=== PATIENT | female | born 1960 | race Hispanic/Latino ===

== ENCOUNTER 2018-01-16 21:52 | Emergency (ER) | payer OTHER, SELFPAY ==
--- OUTSIDE RECORDS SUMMARY | 2018-01-16 21:53 | XMS REPORT | Clinical Summary ---
:1960 Author Organization [facility] Address [address] [place] [address] Phone Care Team Providers Name Role Phone Unavailable Primary Care Provider Unavailable Allergies No Known Allergies Current Medications Prescription Sig. Disp. Refills Start Date End Date Status BABY ASPIRIN ORAL Take by mouth Active daily. metFORMIN (GLUCOPHAGE) 850 Take 850 mg by Active MG tablet mouth 3 (three) times daily with meals. pravastatin (PRAVACHOL) 40 Take 40 mg by Active MG tablet mouth nightly. lisinopril Take 40 mg by Active (PRINIVIL,ZESTRIL) 40 MG mouth daily. tablet Active Problems Problem Noted Date Ventricular tachyarrhythmia (HCC) 12/18/2016 Social History Tobacco Use Types Packs/Day Years Used Date Never Smoker Alcohol Use Drinks/Week oz/Week Comments No Sex Assigned at Date Recorded Not on file Last Filed Vital Signs Not on file Plan of Treatment Not on file Results Not on fileafter 01/15/2017
--- OUTSIDE RECORDS SUMMARY | 2018-01-16 21:54 | XMS REPORT | Continuity of Care Document ---
:1960 Author Organization Interface Problems Problem Status Onset Classification Date Comments Source Date Reported CHEST PAIN Active 10/31/19 [place] [id number] SENT Active 10/31/[address] Diabetes Resolved Problem 11/05/2016 [facility] Hypertension Resolved Problem 11/05/2016 [facility] Hypothyroid Resolved Problem 11/05/2016 [facility] CHEST PAIN, Active [facility] UNSPECIFIED [place] Medications Medication Details Route Status Patient Ordering Order Source Instructions Provider Date Sodium Chloride
1,000 mL, Inactive 0.154 MEQ/ML Rate: 75 ml/hr, 2016 [place] Injectable Infuse over: 13.3 Solution hr, Route: IV, Dosing Weight 72.273 kg, Total Volume: 1,000, Start date: 11/02/16 9:13:00 CDT, Duration: 24 hr, Stop date: 11/03/16 9:12:00 CDT insulin detemir
15 unit, Inactive 0.15 mL, Route: 2016 [place] SUB-Q, Drug form: SOLN, Daily, Start date: 11/02/16 9:00:00 CDT, Duration: 30 day, Stop date: 12/01/16 9:00:00 CDT
Notes: Same as Levemir Do not hold insulin without contacting prescriber WASTE: F/P - Black; E - Municipal Trash Bin "single patient use only" insulin detemir
15 unit, Active 100 units/mL SUB-Q, Daily, 0 2016 [place] subcutaneous Refill(s) solution Insulin, Aspart,
8 unit, Active Human SUB-Q, TID-Before 2017 [place] Meals, PRN Blood Glucose Results, 0 Refill(s) Nitroglycerin
0.4 mg=1 Active 0.4 MG tab, SL, Q5Min, 2017 [place] Sublingual PRN Chest Pain, Tablet not to exceed 3 doses/15 min--if pain persists, seek medical attention, # 100 tab, 3 Refill(s) atorvastatin 40
40 mg=1 tab, Active mg oral tablet PO, Bedtime, # 30 2017 [place] tab, 3 Refill(s) aspirin 81 mg
81 mg=1 tab, Active tablet, enteric PO, Daily, # 100 2017 [place] coated tab, 3 Refill(s) lisinopril 10 mg
10 mg=1 tab, Active oral tablet PO, Daily, # 30 2017 [place] tab, 3 Refill(s) insulin detemir
15 unit, Inactive Route: SUB-Q, 2016 [place] Drug form: SOLN, Daily, Start date: 11/01/16 9:49:00 CDT, Duration: 30 day, Stop date: 12/01/16 9:00:00 CDT Lisinopril
10 mg, 1 No Longer tab, Route: PO, Active 2016 [place] Drug form: TAB, Daily, Dosing Weight 71.045, kg, Start date: 11/01/16 9:00:00 CDT, Duration: 30 day, Stop date: 11/30/16 9:00:00 CDT
Notes: (Same as: Prinivil, Zestril) Lovenox
70 mg, 0.7 No Longer mL, Route: SUB-Q, Active 2016 [place] Drug form: INJ, [id number], Dosing Weight 72.273, kg, Start date: 10/31/16 16:00:00 CDT, Stop date: 11/30/16 4:00:00 CDT
Notes: Nurse to ensure documentation of patient education per anticoagulation policy. (Same as: Lovenox) insulin detemir
15 unit, No Longer Route: SUB-Q, Active 2016 [place] Drug form: SOLN, Daily, Start date: 10/31/16 15:00:00 CDT, Duration: 30 day, Stop date: 11/30/16 9:00:00 CDT
Notes: Same as Levemir Do not hold insulin without contacting prescriber WASTE: F/P - Black; E - [employer] Trash [employer] "single patient use only" Insulin Glargine
12 unit, Inactive 100 UNT/ML Route: SUB-Q, 2017 [place] Injectable Daily, Dosing Solution Weight 72.273, [Lantus] kg, Start date: 10/31/16 14:09:00 CDT, Duration: 30 day, Stop date: 11/30/16 9:00:00 CDT Lovenox
60 mg, Inactive Route: SUB-Q, 2016 [place] Drug form: INJ, [id number], Dosing Weight 72.273, kg, Start date: 10/31/16 14:00:00 CDT, Stop date: 11/01/16 2:00:00 CDT pneumococcal
0.5 mL, Inactive capsular Route: IM, Drug 2016 [place] polysaccharide Form: INJ, Daily, type 1 vaccine / Start date: pneumococcal 10/31/16 9:00:00 capsular CDT, Duration: 1 polysaccharide doses or times, type 10A vaccine Stop date: / pneumococcal 10/31/16 9:00:00 capsular CDT
Notes: polysaccharide (Same as: type 11A vaccine Pneumovax 23) / pneumococcal Refrigerate capsular polysaccharide type 12F vaccine / pneumococcal capsular polysacchar aspirin 81 mg
81 mg, 1 No Longer tablet, enteric tab, Route: PO, Active 2016 [place] coated Drug form: ECTAB, Daily, Dosing Weight 71.045, kg, Start date: 10/31/16 9:00:00 CDT, Duration: 30 day, Stop date: 11/29/16 9:00:00 CDT
Notes: Do not crush or chew. (Same As: Ecotrin) pravastatin 40
40 mg=1 tab, No Longer mg oral tablet PO, Bedtime, 0 Active 2016 [place] Refill(s) Lisinopril
20 mg, PO, No Longer Daily, 0 Active 2016 [place] Refill(s) Metformin
850, PO, Active TID, 0 Refill(s) 2017 [place] atorvastatin
80 mg, 2 No Longer tab, Route: PO, Active 2016 [place] Drug form: TAB, Bedtime, Dosing Weight 71.045, kg, Start date: 10/30/16 21:00:00 CDT, Duration: 30 day, Stop date: 11/28/16 21:00:00 CDT
Notes: (Same as: Lipitor) Saline Flush
10 ml, No Longer 0.9% Route: IVP, Drug Active 2016 [place] Form: INJ, Dosing Weight 71.045, kg, Q12H, Start date: 10/30/16 21:00:00 CDT, Duration: 30 day, Stop date: 11/29/16 9:00:00 CDT
Notes: (Same as: BD Posiflush) metoprolol
50 mg, 1 No Longer extended release tab, Route: PO, Active 2016 [place] Drug form: ERTAB, Daily, Priority: NOW, Start date: 10/30/16 19:02:00 CDT, Duration: 30 day, Stop date: 11/29/16 9:00:00 CDT
Notes: (Same as: Toprol XL) May split tab, but do not crush. Aspirin 81 MG
81 mg, Inactive Chewable Tablet Route: PO, Drug 2016 [place] form: CHEWTAB, Daily, Dosing Weight 71.045, kg, Priority: NOW, Start date: 10/30/16 19:01:00 CDT, Duration: 30 day, Stop date: 11/29/16 9:00:00 CDT Lisinopril
20 mg, 1 No Longer tab, Route: PO, Active 2016 [place] Drug form: TAB, Daily, Dosing Weight 71.045, kg, Priority: STAT, Start date: 10/30/16 19:01:00 CDT, Duration: 30 day, Stop date: 11/29/16 9:00:00 CDT
Notes: (Same as: Prinivil, Zestril) Lovenox
71.045 mg, Inactive 0.71 mL, Route: 2017 [place] SUB-Q, Drug form: INJ, ONCE, Dosing Weight 71.045, kg, Priority: STAT, Start date: 10/30/16 19:00:00 CDT, Stop date: 10/30/16 19:00:00 CDT
Notes: Nurse to ensure documentation of patient education per anticoagulation policy. (Same as: Lovenox) Insulin, Aspart,
8 unit, 0.08 No Longer Human mL, Route: SUB-Q, Active 2016 [place] Drug form: SOLN, TID-Before Meals, Dosing Weight 71.045, kg, PRN Blood Glucose Results, Start date: 10/30/16 19:00:00 CDT, Duration: 30 day, Stop date: 11/29/16 18:59:00 CDT
Notes: Roll in palms of hands gently; Do not shake vigorously. (Same as: NovoLOG) "single patient use only" WASTE: F/P - Black; E - Municipal Trash Bin Stable for 28 days at room temperature. Expires in days from Dat e Dextrose 50%
12.5 gm, 25 No Longer Syringe mL, Route: IVP, Active 2016 [place] Drug Form: INJ, Dosing Weight 71.045, kg, PRN, PRN Blood Glucose Results, Start date: 10/30/16 19:00:00 CDT, Duration: 30 day, Stop date: 11/29/16 18:59:00 CDT Glucagon
1 mg, Route: No Longer IM, Drug form: Active 2016 [place] PDR/INJ, PRN, Dosing Weight 71.045, kg, PRN Blood Glucose Results, Start date: 10/30/16 19:00:00 CDT, Duration: 30 day, Stop date: 11/29/16 18:59:00 CDT Saline Flush
10 ml, No Longer 0.9% Route: IVP, Drug Active 2016 [place] Form: INJ, Dosing Weight 71.045, kg, PRN, PRN Line Flush, Start date: 10/30/16 18:57:00 CDT, Duration: 30 day, Stop date: 11/29/16 18:56:00 CDT
Notes: (Same as: BD Posiflush) Nitroglycerin
0.4 mg, 1 No Longer tab, Route: SL, Active 2016 [place] Drug form: TAB, Q5Min, Dosing Weight 71.045, kg, PRN Chest Pain, Start date: 10/30/16 18:57:00 CDT, Duration: 3 doses or times, Stop date: Limited # of times
Note s: (Same as:Nitroquick, Nitrostat) "Do Not Crush" Sublingual tablet Aspirin
324 mg, Inactive Route: CHEW, Drug 2016 [place] form: CHEWTAB, ONCE, Dosing Weight 71.045, kg, Priority: STAT, Start date: 10/30/16 18:46:00 CDT, Stop date: 10/30/16 18:46:00 CDT Allergies, Adverse Reactions, Alerts Substance Category Reaction Severity Reaction Status Date Comments Source type Reported NKDA Assertion Drug Active allergy [place] Immunizations Immunization Date Site Status Last Comments Source Given Updated pneumococcal Right completed [facility] 23-valent vaccine 7 deltoid Results Order Name Results Value Reference Date Interpretation Comments Source Range ELECTROLYTES AGAP 14.1 10.0 - 11/02 meq/L 20.0 /2017 [place] ELECTROLYTES eGFR 100 11/02 Result Comment: The eGFR is calculated using the CKD-EPI formula. In most young, healthy individuals the eGFR will be > 90 mL/min/1.73m2. The eGFR declines with age. An eGFR of 60-89 may be normal in mL/min/ /2017 some populations, particularly the elderly, for whom the CKD-EPI formula has not been extensively validated. Use of the eGFR is not recommended in the following populations: [place] 1.73m2 Individuals with unstable creatinine concentrations, including patients and those with serious co-morbid conditions. Patients with extremes in muscle mass or diet. The data above are obtained from the National Kidney Disease Education Program (NKDEP) which additionally recommends that when the eGFR is used in patients with extremes of body mass index for purposes of drug dosing, the eGFR should be multiplied by the estimated BMI. ELECTROLYTES CO2 28 24 - 32 11/02 [facility] meq/L /2016 [place] ELECTROLYTES Calcium Lvl 9.5 8.5 - 10.5 11/02 MH mg/dL /2016 [place] ELECTROLYTES Chloride Lvl 99 95 - 109 11/02 MH meq/L /2016 [place] ELECTROLYTES Potassium Lvl 4.1 3.5 - 5.1 11/02 MH meq/L [place] ELECTROLYTES Creatinine Lvl 0.65 0.50 - 11/02 MH mg/dL 1.40 [place] ELECTROLYTES Sodium Lvl 137 135 - 145 11/02 MH meq/L /2016 [place] ELECTROLYTES Glucose Lvl 221 70 - 99 11/02 MH mg/dL [place] ELECTROLYTES BUN 17 7 - 22 11/02 MH mg/dL /2016 [place] HEMATOLOGY Platelet 230 133 - 450 11/02 MH K/CMM [place] HEMATOLOGY RDW 13.1 % 11.5 - 11/02 MH 14.5 [place] HEMATOLOGY MPV 10.4 fL 7.4 - 10.4 11/02 [place] HEMATOLOGY RBC X 10x6 3.92 4.20 - 11/02 MH M/CMM 5.40 [place] HEMATOLOGY MCH 30.7 pg 27.0 - 11/02 MH 31.0 [place] HEMATOLOGY Hct 35.9 % 36.0 - 11/02 MH 48.0 [place] HEMATOLOGY MCHC 33.5 32.0 - 11/02 MH g/dL 36.0 [place] HEMATOLOGY MCV 91.7 fL 80.0 - 11/02 MH 98.0 [place] HEMATOLOGY Hgb 12.0 12.0 - 11/02 MH g/dL 16.0 [place] HEMATOLOGY WBC X 10x3 8.1 3.7 - 10.4 11/02 MH K/CMM [place] HEMATOLOGY Atypical 0.0 % <=0.0 % 11/02 Lymphs /2016 [place] HEMATOLOGY RBC Morph Normal 11/02 [place] (11/02/16 4:19 AM) HEMATOLOGY Lymphocytes 42.0 % 20.0 - 11/02 MH 40.0 [place] HEMATOLOGY Plt Morph Normal 11/02 [place] (11/02/16 4:19 AM) HEMATOLOGY Monocytes 9.0 % 2.0 - 12.0 11/02 MH [place] HEMATOLOGY Eosinophils # 0.3 0.0 - 0.5 / MH K/CMM [place] HEMATOLOGY Monocytes # 0.7 0.0 - 0.8 11/02 MH K/CMM [place] HEMATOLOGY Basophils 1.0 % 0.0 - 1.0 11/02 [place] HEMATOLOGY Eosinophils 4.0 % 0.0 - 4.0 11/02 [place] HEMATOLOGY Basophils # 0.1 0.0 - 0.2 11/02 MH K/CMM [place] HEMATOLOGY Bands 3.0 % 0.0 - 11.0 11/02 [place] HEMATOLOGY Lymphocytes # 3.4 1.0 - 5.5 11/02 MH K/CMM [place] HEMATOLOGY Segs 41.0 % 45.0 - 11/02 MH 75.0 [place] HEMATOLOGY Segs-Bands # 3.6 1.5 - 8.1 11/02 MH K/CMM [place] ELECTROLYTES AGAP 9.2 10.0 - 11/01 MH meq/L 20.0 [place] ELECTROLYTES Calcium Lvl 9.0 8.5 - 10.5 11/01 MH mg/dL [place] ELECTROLYTES CO2 32 24 - 32 11/01 MH meq/L [place] ELECTROLYTES eGFR 96 11/01 Result Comment: The eGFR is calculated using the CKD-EPI formula. In most young, healthy individuals the eGFR will be > 90 mL/min/1.73m2. The eGFR declines with age. An eGFR of 60-89 may be normal in MH mL/min/ /2016 some populations, particularly the elderly, for whom the CKD-EPI formula has not been extensively validated. Use of the eGFR is not recommended in the following populations: [place] 1.73m2 Individuals with unstable creatinine concentrations, including patients and those with serious co-morbid conditions. Patients with extremes in muscle mass or diet. The data above are obtained from the National Kidney Disease Education Program (NKDEP) which additionally recommends that when the eGFR is used in patients with extremes of body mass index for purposes of drug dosing, the eGFR should be multiplied by the estimated BMI. ELECTROLYTES Sodium Lvl 139 135 - 145 11/01 [place] meq/L [place] ELECTROLYTES Creatinine Lvl 0.71 0.50 - 11/01 MH mg/dL 1. [place] ELECTROLYTES Chloride Lvl 102 95 - 109 11/01 meq/L [place] ELECTROLYTES Potassium Lvl 4.2 3.5 - 5.1 11/01 meq/L [place] ELECTROLYTES BUN 13 7 - 22 11/01 mg/dL [place] ELECTROLYTES Glucose Lvl 236 70 - 99 11/01 mg/dL [place] HEMATOLOGY Plt Morph Normal 11/01 [place] (11/01/16 4:28 AM) HEMATOLOGY RBC Morph Normal 11/01 [place] (11/01/16 4:28 AM) HEMATOLOGY Atypical 8.0 % <=0.0 % 11/01 Lymphs /2016 [place] HEMATOLOGY Segs-Bands # 2.9 1.5 - 8.1 11/01 MH K/CM [place] HEMATOLOGY Lymphocytes # 3.5 1.0 - 5.5 11/01 K/CM [place] HEMATOLOGY Monocytes # 0.5 0.0 - 0.8 11/01 K/CM [place] HEMATOLOGY Bands 0.0 % 0.0 - 11.0 11/01 [place] HEMATOLOGY Eosinophils # 0.4 0.0 - 0.5 11/01 K/CM [place] HEMATOLOGY Segs 40.0 % 45.0 - 11/01 MH 75.0 [place] HEMATOLOGY Lymphocytes 40.0 % 20.0 - 11/01 MH 40.0 [place] HEMATOLOGY Monocytes 7.0 % 2.0 - 12.0 11/01 [place] HEMATOLOGY Eosinophils 5.0 % 0.0 - 4.0 11/01 [place] HEMATOLOGY MCV 92.0 fL 80.0 - 11/01 MH 98.0 [place] HEMATOLOGY Hct 35.6 % 36.0 - 11/01 MH 48.0 [place] HEMATOLOGY WBC X 10x3 7.2 3.7 - 10.4 11/01 MH K/CM [place] HEMATOLOGY Hgb 12.0 12.0 - 11/01 MH g/dL 16.0 [place] HEMATOLOGY RBC X 10x6 3.87 4.20 - 11/01 MH M/CMM 5.40 [place] HEMATOLOGY MPV 10.1 fL 7.4 - 10.4 11/01 MH /2016 [place] HEMATOLOGY Platelet 220 133 - 450 / MH K/CMM /2016 [place] HEMATOLOGY MCHC 33.6 32.0 - 04 MH g/dL 36.0 /2016 [place] HEMATOLOGY MCH 30.9 pg 27.0 - 04 MH 31.0 /2016 [place] HEMATOLOGY RDW 13.3 % 11.5 - 11/01 MH 14.5 /2016 [place] CARDIAC CK MB 0.7 0.5 - 3.6 10/31 MH ENZYMES ng/mL /2016 [place] CARDIAC CK-MB INDEX 0.8 0.0 - 2.5 / MH ENZYMES /2017 [place] CARDIAC Total CK 89 12 - 191 10/31 MH ENZYMES unit/L /2016 [place] CARDIAC Troponin-I 0.03 0.00 - 10/31 MH ENZYMES ng/mL 0.40 [place] ELECTROLYTES AGAP 9.4 10.0 - 10/31 MH meq/L 20.0 [place] ELECTROLYTES Calcium Lvl 8.8 8.5 - 10.5 10/31 MH mg/dL /2016 [place] ELECTROLYTES eGFR 98 10/31 Result Comment: The eGFR is calculated using the CKD-EPI formula. In most young, healthy individuals the eGFR will be > 90 mL/min/1.73m2. The eGFR declines with age. An eGFR of 60-89 may be normal in MH mL/min/ /2016 some populations, particularly the elderly, for whom the CKD-EPI formula has not been extensively validated. Use of the eGFR is not recommended in the following populations: [place] 1.73m2 Individuals with unstable creatinine concentrations, including patients and those with serious co-morbid conditions. Patients with extremes in muscle mass or diet. The data above are obtained from the National Kidney Disease Education Program (NKDEP) which additionally recommends that when the eGFR is used in patients with extremes of body mass index for purposes of drug dosing, the eGFR should be multiplied by the estimated BMI. ELECTROLYTES Glucose Lvl 205 70 - 99 / MH mg/dL /2016 [place] ELECTROLYTES Potassium Lvl 4.4 3.5 - 5.1 10/31 MH meq/L /2016 [place] ELECTROLYTES Sodium Lvl 140 135 - 145 / MH meq/L /2016 [place] ELECTROLYTES Creatinine Lvl 0.68 0.50 - 15 MH mg/dL 1.40 [place] ELECTROLYTES BUN 9 mg/dL 7 - 22 10/31 [place] ELECTROLYTES CO2 32 24 - 32 10/31 MH meq/L [place] ELECTROLYTES Chloride Lvl 103 95 - 109 10/31 meq/L [place] HEMATOLOGY Bands 1.0 % 0.0 - 11.0 10/31 [place] HEMATOLOGY Lymphocytes 60.0 % 20.0 - 10/31 MH 40.0 [place] HEMATOLOGY Eosinophils # 0.1 0.0 - 0.5 10/31 K/CM [place] HEMATOLOGY Segs 32.0 % 45.0 - 10/31 MH 75.0 [place] HEMATOLOGY Monocytes # 0.4 0.0 - 0.8 10/31 K/CM [place] HEMATOLOGY RBC Morph Normal 10/31 [place] (10/31/16 6:07 AM) HEMATOLOGY Plt Morph Normal 10/31 [place] (10/31/16 6:07 AM) HEMATOLOGY Eosinophils 1.0 % 0.0 - 4.0 10/31 [place] HEMATOLOGY Atypical 0.0 % <=0.0 % 10/31 Lymph [place] HEMATOLOGY Monocytes 6.0 % 2.0 - 12.0 10/31 [place] HEMATOLOGY Lymphocytes # 4.3 1.0 - 5.5 10/31 K/CM [place] HEMATOLOGY Segs-Bands # 2.3 1.5 - 8.1 10/31 K/CM [place] HEMATOLOGY Basophils # 0.1 0.0 - 0.2 10/31 K/CM [place] HEMATOLOGY Basophils 0.8 % 0.0 - 1.0 10/31 [place] HEMATOLOGY WBC X 10x3 7.1 3.7 - 10.4 10/31 K/CM [place] HEMATOLOGY RBC X 10x6 3.74 4.20 - 10/31 MH M/CMM 5. [place] HEMATOLOGY MPV 9.9 fL 7.4 - 10.4 10/31 [place] HEMATOLOGY Platelet 237 133 - 450 10/31 K/CM [place] HEMATOLOGY RDW 12.7 % 11.5 - 10/31 MH 14. [place] HEMATOLOGY MCHC 33.3 32.0 - 10/31 MH g/dL 36.0 /2016 [place] HEMATOLOGY Hct 34.3 % 36.0 - 10/31 MH 48.0 [place] HEMATOLOGY Hgb 11.4 12.0 - 10/31 MH g/dL 16.0 [place] HEMATOLOGY MCV 91.5 fL 80.0 - 10/31 MH 98.0 [place] HEMATOLOGY MCH 30.5 pg 27.0 - 10/31 MH 31.0 [place] LIPIDS VLDL 41 10/31 MH /2016 [place] LIPIDS LDL 83 <=99 mg/dL 10/31 MH (Calculated) mg/dL /2016 [place] LIPIDS HDL 49 >=61 mg/dL 10/31 MH mg/dL [place] LIPIDS Chol 173 <=199 10/31 MH mg/dL mg/dL [place] LIPIDS Trig 207 <=149 10/31 MH mg/dL mg/dL [place] LIPIDS CHD Risk 3.53 3.90 - 10/31 MH 5.80 [place] SPECIAL Hgb A1C 12.6 % <=5.6 % 10/31 CHEMISTRY /2016 [place] CARDIAC Troponin-I 0.06 0.00 - 10/31 MH ENZYMES ng/mL 0.40 [place] CHEM PANEL Magnesium Lvl 1.3 1.8 - 2.4 10/31 MH mg/dL [place] HEMATOLOGY Basophils 1.0 % 0.0 - 1.0 10/31 [place] HEMATOLOGY Basophils # 0.1 0.0 - 0.2 10/31 MH K/CMM /2016 [place] CARDIAC CK MB 1.1 0.5 - 3.6 10/30 MH ENZYMES ng/mL [place] CARDIAC CK-MB INDEX 0.8 0.0 - 2.5 10/30 MH ENZYMES /2016 [place] CARDIAC Total CK 135 12 - 191 10/30 MH ENZYMES unit/L [place] CARDIAC Troponin-I 0.02 0.00 - 10/30 MH ENZYMES ng/mL 0.40 [place] CHEM PANEL Bili Total 0.2 0.2 - 1.3 10/30 MH mg/dL [place] CHEM PANEL ALANINE 29 0 - 65 10/30 AMINOTRANSFERA unit/L [place] SE CHEM PANEL Albumin Lvl 3.6 3.5 - 5.0 10/30 MH g/dL [place] CHEM PANEL Total Protein 7.4 6.4 - 8.4 10/30 g/dL [place] CHEM PANEL Alk Phos 76 39 - 136 10/30 MH unit/L [place] CHEM PANEL ASPARTATE 16 0 - 37 10/30 TRANSAMINASE unit/L [place] CHEM PANEL A/G Ratio 0.9 0.7 - 1.6 10/30 [place] CHEM PANEL B/C Ratio 9 6 - 25 10/30 [place] CHEM PANEL Globulin 3.8 2.7 - 4.2 10/30 g/dL [place] Vital Signs Vital Sign Value Date Comments Source Systolic (mm Hg) 132 11/02/2016 [facility] Diastolic (mm Hg) 69 11/02/2016 [facility] Respitory Rate 16 11/02/2016 [facility] Systolic (mm Hg) 133 11/02/2016 [facility] Diastolic (mm Hg) 68 11/02/2016 [facility] Respitory Rate 16 11/02/2016 [facility] Respitory Rate 16 11/02/2016 [facility] Systolic (mm Hg) 122 11/02/2016 [facility] Diastolic (mm Hg) 69 11/02/2016 [facility] Heart Rate 55 11/02/2016 [facility] Temperature Oral (F) 98.3 F 11/02/2016 [facility] Temperature Oral (F) 97.4 F 11/02/2016 [facility] Heart Rate 48 11/02/2016 [facility] Temperature Oral (F) 98.1 F 11/02/2016 [facility] Heart Rate 62 11/02/2016 [facility] Height 152.4 cm 10/31/2016 [facility] Weight 72.273 10/31/2016 [facility] BMI Calculated 31.12 10/31/2016 [facility] Weight 71.045 10/30/2016 [facility] BMI Calculated 27.75 10/30/2016 [facility] Height 160.02 cm 10/30/2016 [facility] Encounters Location Location Encounter Encounter Reason Attending ADM DC Status Source Details Type Number For Provider Date Date Visit [facility] [id number] [place] 10/30 11/02 Mehrdad Lemon /2016 [facility] Procedures Procedure Code Date Perfomer Comments Source
--- OUTSIDE RECORDS SUMMARY | 2018-01-16 21:55 | XMS REPORT ---
:1960 [facility] Address [address] [place] [address] Care Team Providers Name Role Phone FELECIA GRISSOM Unavailable Unavailable Problems This patient has no known problems. Allergies, Adverse Reactions, Alerts This patient has no known allergies or adverse reactions. Medications This patient has no known medications. Results Test Description Test Time Test Comments Text Results Atomic Results Result Comments CBC W/PLT COUNT & AUTO DIFFERENTIAL 2016-12-18 09:04:00 Test Item Value Reference Range Comments WHITE BLOOD CELL COUNT (BEAKER) (test ooem=815) 8.2 K/ L 4.0-10.0 RED BLOOD CELL COUNT (BEAKER) (test wnte=551) 4.06 M/ L 4.00-5.00 HEMOGLOBIN (BEAKER) (test cwhz=771) 12.5 GM/DL 12.0-15.0 HEMATOCRIT (BEAKER) (test jfuo=664) 38.6 % 36.0-45.0 MEAN CORPUSCULAR VOLUME (BEAKER) (test qsko=215) 95.0 fL 82.0-99.0 MEAN CORPUSCULAR HEMOGLOBIN (BEAKER) (test qxqh=304) 30.9 pg 27.0-33.0 MEAN CORPUSCULAR HEMOGLOBIN CONC (BEAKER) (test oudd=660) 32.5 GM/DL 32.0- 36.0 RED CELL DISTRIBUTION WIDTH (BEAKER) (test ggbc=390) 12.6 % 10.3-14.2 PLATELET COUNT (BEAKER) (test cxgm=278) 278 K/CU MM 150-430 MEAN PLATELET VOLUME (BEAKER) (test vyip=804) 8.1 fL 6.5-10.5 NUCLEATED RED BLOOD CELLS (BEAKER) (test wlmr=478) 0 /100 WBC 0-0 NEUTROPHILS RELATIVE PERCENT (BEAKER) (test humt=792) 58 % LYMPHOCYTES RELATIVE PERCENT (BEAKER) (test cwyw=030) 31 % MONOCYTES RELATIVE PERCENT (BEAKER) (test bjwz=598) 8 % EOSINOPHILS RELATIVE PERCENT (BEAKER) (test ykwj=331) 3 % BASOPHILS RELATIVE PERCENT (BEAKER) (test rzgm=854) 1 % NEUTROPHILS ABSOLUTE COUNT (BEAKER) (test kwjh=103) 4.77 K/ L 1.80-8.00 LYMPHOCYTES ABSOLUTE COUNT (BEAKER) (test kprk=375) 2.54 K/ L 1.48-4.50 MONOCYTES ABSOLUTE COUNT (BEAKER) (test synq=527) 0.62 K/ L 0.00-1.30 EOSINOPHILS ABSOLUTE COUNT (BEAKER) (test xloj=636) 0.21 K/ L 0.00-0.50 BASOPHILS ABSOLUTE COUNT (BEAKER) (test tdcq=296) 0.10 K/ L 0.00-0.20 [id number] 09:02:00 Test Item Value Reference Range Comments MAGNESIUM (BEAKER) (test lerg=455) 1.5 mg/dL 1.6-2.6 COMPREHENSIVE METABOLIC [id number] 09:02:00 Test Item Value Reference Range Comments TOTAL PROTEIN (BEAKER) 7.9 gm/dL 6.0-8.3 (test pffa=442) ALBUMIN (BEAKER) (test 4.3 g/dL 3.5-5.0 hnvo=8004) ALKALINE PHOSPHATASE 62 U/L 40-150 (BEAKER) (test sskh=509) BILIRUBIN TOTAL (BEAKER) 0.5 mg/dL 0.2-1.2 (test nckf=424) SODIUM (BEAKER) (test 137 meq/L 136-145 exnl=784) POTASSIUM (BEAKER) (test 4.2 meq/L 3.5-5.1 ftdq=711) CHLORIDE (BEAKER) (test 101 meq/L 98-107 omev=296) CO2 (BEAKER) (test 27 meq/L 22-29 ywvv=557) BLOOD UREA NITROGEN 10 mg/dL 7-21 (BEAKER) (test nwlx=201) CREATININE (BEAKER) (test 0.84 mg/dL 0.57-1.25 yucq=575) GLUCOSE RANDOM (BEAKER) 208 mg/dL 70-105 (test vyok=305) CALCIUM (BEAKER) (test 9.8 mg/dL 8.4-10.2 ngwh=023) AST (SGOT) (LearnmetricsAKER) (test 18 U/L 5-34 ibea=406) ALT (SGPT) (LearnmetricsAKER) (test 22 U/L 6-55 gldy=391) EGFR (BEAKER) (test 70 mL/min/1.73 sq m ESTIMATED GFR IS NOT xuhx=5366) ACCURATE CREATININE CLEARANCE IN PREDICTING GLOMERULAR FILTRATION RATE. ESTIMATED GFR IS NOT APPLICABLE FOR DIALYSIS PATIENTS.
--- OUTSIDE RECORDS SUMMARY | 2018-01-16 21:55 | XMS REPORT | Summary of Care ---
:1960 Author Organization [facility] Address [address] [place] [address]- Encounter HQ Rashi_[email or web address](FIN) [id number] Date(s): 10/30/16 - 11/02/16 [facility] [id number] [place] [phone] Discharge Disposition: Home or Self Care Attending Physician: Bereket Lemon MD Admitting Physician: Bereket Lemon MD Vital Signs Most recent to oldest 1 2 3 [Reference Range]: Height 152.4 cm 160.02 cm (10/30/16 8:33 PM) (10/30/16 5:17 PM) Current Weight 71.909 kg (10/31/16 5:38 AM) Temperature Oral [96.4-99.1 98.3 DegF 97.4 DegF 98.1 DegF DegF] (11/02/16 5:00 AM) (11/02/16 12:00 AM) (11/01/16 7:00 PM) Blood Pressure [90-140/60-90 132/69 mmHg 133/68 mmHg 122/69 mmHg mmHg] (11/02/16 11:15 AM) (11/02/16 11:00 AM) (11/02/16 10:30 AM) Respiratory Rate [14-20 16 BRMIN 16 BRMIN 16 BRMIN BRMIN] (11/02/16 11:15 AM) (11/02/16 11:00 AM) (11/02/16 10:30 AM) Peripheral Pulse Rate 55 bpm 48 bpm 62 bpm [60-100 bpm] *LOW* *LOW* (11/01/16 7:00 PM) (11/02/16 5:00 AM) (11/02/16 12:00 AM) Weight 72.273 kg 71.045 kg (10/30/16 8:33 PM) (10/30/16 5:17 PM) Body Mass Index 31.12 m2 27.75 m2 (10/30/16 8:33 PM) (10/30/16 5:17 PM) Problem List Condition Effective Dates Status Health Status Informant Diabetes(Confirmed) Resolved Hypertension(Confirmed) Resolved Hypothyroid(Confirmed) Resolved Allergies, Adverse Reactions, Alerts Substance Reaction Severity Status NKDA Active Medications aspirin 324 mg, Route: CHEW, Drug form: CHEWTAB, ONCE, Dosing Weight 71.045, kg, Priority: STAT, Start date:10/30/16 18:46:00 CDT, Stop date: 10/30/16 18:46:00 CDT Start Date: 10/30/16 Stop Date: 10/30/16 Status: Completedaspirin 81 mg tablet, chewable 81 mg, Route: PO, Drug form: CHEWTAB, Daily, Dosing Weight 71.045, kg, Priority : NOW, Start date: 10/30/16 19:01:00 CDT, Duration: 30 day, Stop date: 11/29/16 9:00:00 CDT Start Date: 10/30/16 Stop Date: 10/30/16 Status: Deletedaspirin 81 mg tablet, enteric coated 81 mg, 1 tab, Route: PO, Drug form: ECTAB, Daily, Dosing Weight 71.045, kg, Start date: 10/31/16 9:00:00 CDT, Duration: 30 day, Stop date: 11/29/16 9:00:00 CDT Notes: Do not crush or chew.(Same As: Ecotrin) Start Date: 10/31/16 Stop Date: 11/02/16 Status: Discontinuedaspirin 81 mg tablet, enteric coated 81 mg=1 tab, PO, Daily, # 100 tab, 3 Refill(s) Start Date: 11/02/16 Status: Orderedatorvastatin 80 mg, 2 tab, Route: PO, Drug form: TAB, Bedtime, Dosing Weight 71.045, kg, Start date: 10/30/16 21:00:00 CDT, Duration: 30 day, Stop date: 11/28/16 21:00: 00 CDT Notes: (Same as: Lipitor) Start Date: 10/30/16 Stop Date: 11/02/16 Status: Discontinuedatorvastatin 40 mg oral tablet 40 mg=1 tab, PO, Bedtime, # 30 tab, 3 Refill(s) Start Date: 11/02/16 Status: OrderedDextrose 50% Syringe 12.5 gm, 25 mL, Route: IVP, Drug Form: INJ, Dosing Weight 71.045, kg, PRN, PRN Blood Glucose Results, Start date: 10/30/16 19:00:00 CDT, Duration: 30 day, Stop date: 11/29/16 18:59:00 CDT Start Date: 10/30/16 Stop Date: 11/02/16 Status: DiscontinuedDextrose 50% Syringe 25 gm, 50 mL, Route: IVP, Drug Form: INJ, Dosing Weight 71.045, kg, PRN, PRN Blood Glucose Results, Start date: 10/30/16 19:00:00 CDT, Duration: 30 day, Stop date: 11/29/16 18:59:00 CDT Start Date: 10/30/16 Stop Date: 11/02/16 Status: Discontinuedglucagon 1 mg, Route: IM, Drug form: PDR/INJ, PRN, Dosing Weight 71.045, kg, PRN Blood Glucose Results, Startdate: 10/30/16 19:00:00 CDT, Duration: 30 day, Stop date: 11/29/16 18:59:00 CDT Start Date: 10/30/16 Stop Date: 11/02/16 Status: Discontinuedinsulin aspart 8 unit, 0.08 mL, Route: SUB-Q, Drug form: SOLN, TID-Before Meals, Dosing Weight 71.045, kg, PRN Blood Glucose Results, Start date: 10/30/16 19:00:00 CDT, Duration: 30 day, Stop date: 11/29/16 18:59:00 CDT Notes: Roll in palms of hands gently; Do not shake vigorously. (Same as: NovoLOG)"single patient use only"WASTE: F/P - Black; E - Municipal Trash Bin Stable for 28 days at room temperature.Expires in days from Date Start Date: 10/30/16 Stop Date: 11/02/16 Status: Discontinuedinsulin aspart 6 unit, 0.06 mL, Route: SUB-Q, Drug form: SOLN, TID-Before Meals, Dosing Weight 71.045, kg, PRN Blood Glucose Results, Start date: 10/30/16 19:00:00 CDT, Duration: 30 day, Stop date: 11/29/16 18:59:00 CDT Notes: Roll in palms of hands gently; Do not shake vigorously. (Same as: [employer])"single patient use only"WASTE: F/P - Black; E - Municipal Trash Bin Stable for 28 days at room temperature.Expires in days from Date Start Date: 10/30/16 Stop Date: 11/02/16 Status: Discontinuedinsulin aspart 2 unit, 0.02 mL, Route: SUB-Q, Drug form: SOLN, TID-Before Meals, Dosing Weight 71.045, kg, PRN Blood Glucose Results, Start date: 10/30/16 19:00:00 CDT, Duration: 30 day, Stop date: 11/29/16 18:59:00 CDT Notes: Roll in palms of hands gently; Do not shake vigorously. (Same as: [employer])"single patient use only"WASTE: F/P - Black; E - [facility] Trash Bin Stable for 28 days at room temperature.Expires in days from Date Start Date: 10/30/16 Stop Date: 11/02/16 Status: Discontinuedinsulin aspart 4 unit, 0.04 mL, Route: SUB-Q, Drug form: SOLN, TID-Before Meals, Dosing Weight 71.045, kg, PRN Blood Glucose Results, Start date: 10/30/16 19:00:00 CDT, Duration: 30 day, Stop date: 11/29/16 18:59:00 CDT Notes: Roll in palms of hands gently; Do not shake vigorously. (Same as: [employer])"single patient use only"WASTE: F/P - Black; E - [facility] Trash Bin Stable for 28 days at room temperature.Expires in days from Date Start Date: 10/30/16 Stop Date: 11/02/16 Status: Discontinuedinsulin aspart 10 unit, 0.1 mL, Route: SUB-Q, Drug form: SOLN, TID-Before Meals, Dosing Weight 71.045, kg, PRN Blood Glucose Results, Start date: 10/30/16 19:00:00 CDT, Duration: 30 day, Stop date: 11/29/16 18:59:00 CDT Notes: Roll in palms of hands gently; Do not shake vigorously. (Same as: NovoLOG)"single patient use only"WASTE: F/P - Black; E - [facility] Trash Bin Stable for 28 days at room temperature.Expires in days from Date Start Date: 10/30/16 Stop Date: 11/02/16 Status: Discontinuedinsulin aspart 8 unit, SUB-Q, TID-Before Meals, PRN Blood Glucose Results, 0 Refill(s) Start Date: 11/02/16 Status: Orderedinsulin detemir 15 unit, 0.15 mL, Route: SUB-Q, Drug form: SOLN, Daily, Start date: 11/02/16 9: 00:00 CDT, Duration: 30 day, Stop date: 12/01/16 9:00:00 CDT Notes: Same as LevemirDo not hold insulin without contacting prescriberWASTE: F/ P - Black; E - Municipal Trash Bin "single patient use only" Start Date: 11/02/16 Stop Date: 11/02/16 Status: Discontinuedinsulin detemir 15 unit, Route: SUB-Q, Drug form: SOLN, Daily, Start date: 11/01/16 9:49:00 CDT , Duration: 30 day, Stop date: 12/01/16 9:00:00 CDT Start Date: 11/01/16 Stop Date: 11/01/16 Status: Discontinuedinsulin detemir 15 unit, Route: SUB-Q, Drug form: SOLN, Daily, Start date: 10/31/16 15:00:00 CDT , Duration: 30 day, Stop date: 11/30/16 9:00:00 CDT Notes: Same as LevemirDo not hold insulin without contacting prescriberWASTE: F/ P - Black; E - [facility] "single patient use only" Start Date: 10/31/16 Stop Date: 11/01/16 Status: Discontinuedinsulin detemir 100 units/mL subcutaneous solution 15 unit, SUB-Q, Daily, 0 Refill(s) Start Date: 11/02/16 Status: OrderedLantus 100 units/mL 12 unit, Route: SUB-Q, Daily, Dosing Weight 72.273, kg, Start date: 10/31/16 14: 09:00 CDT, Duration:30 day, Stop date: 11/30/16 9:00:00 CDT Start Date: 10/31/16 Stop Date: 10/31/16 Status: Deletedlisinopril 20 mg, 1 tab, Route: PO, Drug form: TAB, Daily, Dosing Weight 71.045, kg, Priority: STAT, Start date: 10/30/16 19:01:00 CDT, Duration: 30 day, Stop date: 11/29/16 9:00:00 CDT Notes: (Same as: Adriana Jean-Baptiste) Start Date: 10/30/16 Stop Date: 10/31/16 Status: Discontinuedlisinopril 20 mg, PO, Daily, 0 Refill(s) Start Date: 10/30/16 Stop Date: 11/02/16 Status: Discontinuedlisinopril 10 mg, 1 tab, Route: PO, Drug form: TAB, Daily, Dosing Weight 71.045, kg, Start date: 11/01/16 9:00:00 CDT, Duration: 30 day, Stop date: 11/30/16 9:00:00 CDT Notes: (Same as: Castro Jean-Baptistestrisaida) Start Date: 11/01/16 Stop Date: 11/02/16 Status: Discontinuedlisinopril 10 mg oral tablet 10 mg=1 tab, PO, Daily, # 30 tab, 3 Refill(s) Start Date: 11/02/16 Status: OrderedLovenox 60 mg, Route: SUB-Q, Drug form: INJ, [id number], Dosing Weight 72.273, kg, Start date: 10/31/16 14:00:00 CDT, Stop date: 11/01/16 2:00:00 CDT Start Date: 10/31/16 Stop Date: 10/31/16 Status: DiscontinuedLovenox 70 mg, 0.7 mL, Route: SUB-Q, Drug form: INJ, [id number], Dosing Weight 72.273, kg , Start date: 10/31/16 16:00:00 CDT, Stop date: 11/30/16 4:00:00 CDT Notes: Nurse to ensure documentation of patient education per anticoagulation policy. (Same as: Lovenox) Start Date: 10/31/16 Stop Date: 11/02/16 Status: DiscontinuedLovenox 71.045 mg, 0.71 mL, Route: SUB-Q, Drug form: INJ, ONCE, Dosing Weight 71.045, kg , Priority: STAT, Start date: 10/30/16 19:00:00 CDT, Stop date: 10/30/16 19:00: 00 CDT Notes: Nurse to ensure documentation of patient education per anticoagulation policy. (Same as: Lovenox) Start Date: 10/30/16 Stop Date: 10/30/16 Status: CompletedmetFORMIN 850, PO, TID, 0 Refill(s) Start Date: 10/30/16 Status: Orderedmetoprolol extended release 50 mg, 1 tab, Route: PO, Drug form: ERTAB, Daily, Priority: NOW, Start date: 19:02:00 CDT, Duration: 30 day, Stop date: 11/29/16 9:00:00 CDT Notes: (Same as: Toprol XL) May split tab, but do not crush. Start Date: 10/30/16 Stop Date: 11/02/16 Status: Discontinuednitroglycerin 0.4 mg sublingual tablet 0.4 mg=1 tab, SL, Q5Min, PRN Chest Pain, not to exceed 3 doses/15 min--if pain persists, seek medical attention, # 100 tab, 3 Refill(s) Start Date: 11/02/16 Status: Orderednitroglycerin SL Tab 0.4 mg, 1 tab, Route: SL, Drug form: TAB, Q5Min, Dosing Weight 71.045, kg, PRN Chest Pain, Start date: 10/30/16 18:57:00 CDT, Duration: 3 doses or times, Stop date: Limited # of times Notes: (Same as:Nitroquick, Nitrostat)"Do Not Crush" Sublingual tablet Start Date: 10/30/16 Stop Date: 11/02/16 Status: Discontinuedpneumococcal 23-valent vaccine 0.5 mL, Route: IM, Drug Form: INJ, Daily, Start date: 10/31/16 9:00:00 CDT, Duration: 1 doses or times, Stop date: 10/31/16 9:00:00 CDT Notes: (Same as: Pneumovax 23) Refrigerate Start Date: 10/31/16 Stop Date: 10/31/16 Status: Completedpravastatin 40 mg oral tablet 40 mg=1 tab, PO, Bedtime, 0 Refill(s) Start Date: 10/30/16 Stop Date: 11/02/16 Status: DiscontinuedSaline Flush 0.9% 10 ml, Route: IVP, Drug Form: INJ, Dosing Weight 71.045, kg, PRN, PRN Line Flush , Start date: 10/30/16 18:57:00 CDT, Duration: 30 day, Stop date: 11/29/16 18:56 :00 CDT Notes: (Same as: BD Posiflush) Start Date: 10/30/16 Stop Date: 11/02/16 Status: DiscontinuedSaline Flush 0.9% 10 ml, Route: IVP, Drug Form: INJ, Dosing Weight 71.045, kg, Q12H, Start date: 10/30/16 21:00:00 CDT, Duration: 30 day, Stop date: 11/29/16 9:00:00 CDT Notes: (Same as: BD Posiflush) Start Date: 10/30/16 Stop Date: 11/02/16 Status: Discontinuedsodium chloride 0.9% 1000 ml INJ 1,000 mL 1,000 mL, Rate: 75 ml/hr, Infuse over: 13.3 hr, Route: IV, Dosing Weight 72.273 kg, Total Volume: 1,000, Start date: 11/02/16 9:13:00 CDT, Duration: 24 hr, Stop date: 11/03/16 9:12:00 CDT Start Date: 11/02/16 Stop Date: 11/02/16 Status: Discontinued Results ELECTROLYTES Most recent to oldest 1 2 3 [Reference Range]: Sodium Lvl [135-145 mEq/L] 137 mEq/L 139 mEq/L 140 mEq/L (11/02/16 4:19 AM) (11/01/16 4:28 AM) (10/31/16 6:07 AM) Potassium Lvl [3.5-5.1 4.1 mEq/L 4.2 mEq/L 4.4 mEq/L mEq/L] (11/02/16 4:19 AM) (11/01/16 4:28 AM) (10/31/16 6:07 AM) Chloride Lvl [95-109 mEq/L] 99 mEq/L 102 mEq/L 103 mEq/L (11/02/16 4:19 AM) (11/01/16 4:28 AM) (10/31/16 6:07 AM) CO2 [24-32 mEq/L] 28 mEq/L 32 mEq/L 32 mEq/L (11/02/16 4:19 AM) (11/01/16 4:28 AM) (10/31/16 6:07 AM) AGAP [10.0-20.0 mEq/L] 14.1 mEq/L 9.2 mEq/L 9.4 mEq/L (11/02/16 4:19 AM) *LOW* *LOW* (11/01/16 4:28 AM) (10/31/16 6:07 AM) CHEM PANEL Most recent to oldest 1 2 3 [Reference Range]: Creatinine Lvl [0.50-1.40 0.65 mg/dL 0.71 mg/dL 0.68 mg/dL mg/dL] (11/02/16 4:19 AM) (11/01/16 4:28 AM) (10/31/16 6:07 AM) eGFR 100 mL/min/1.73m2 1 96 mL/min/1.73m2 2 98 mL/min/1.73m2 3 *NA* *NA* *NA* (11/02/16 4:19 AM) (11/01/16 4:28 AM) (10/31/16 6:07 AM) BUN [7-22 mg/dL] 17 mg/dL 13 mg/dL 9 mg/dL (11/02/16 4:19 AM) (11/01/16 4:28 AM) (10/31/16 6:07 AM) B/C Ratio [6-25] 9 (10/30/16 6:05 PM) Glucose Lvl [70-99 mg/dL] 221 mg/dL 236 mg/dL 205 mg/dL *HI* *HI* *HI* (11/02/16 4:19 AM) (11/01/16 4:28 AM) (10/31/16 6:07 AM) Total Protein [6.4-8.4 7.4 g/dL g/dL] (10/30/16 6:05 PM) Albumin Lvl [3.5-5.0 g/dL] 3.6 g/dL (10/30/16 6:05 PM) Globulin [2.7-4.2 g/dL] 3.8 g/dL (10/30/16 6:05 PM) A/G Ratio [0.7-1.6] 0.9 (10/30/16 6:05 PM) Calcium Lvl [8.5-10.5 9.5 mg/dL 9.0 mg/dL 8.8 mg/dL mg/dL] (11/02/16 4:19 AM) (11/01/16 4:28 AM) (10/31/16 6:07 AM) Magnesium Lvl [1.8-2.4 1.3 mg/dL mg/dL] *LOW* (10/30/16 10:49 PM) ALT [0-65 unit/L] 29 unit/L (10/30/16 6:05 PM) AST [0-37 unit/L] 16 unit/L (10/30/16 6:05 PM) Alk Phos [39-136 unit/L] 76 unit/L (10/30/16 6:05 PM) Bili Total [0.2-1.3 mg/dL] 0.2 mg/dL (10/30/16 6:05 PM) 1Result Comment: The eGFR is calculated using the CKD-EPI formula. In most young , healthy individualsthe eGFR will be >90 mL/min/1.73m2. The eGFR declines with age. An eGFR of 60-89 may be normal in some populations, particularly the elderly, for whom the CKD-EPI formula has not been extensively validated. Use of the eGFR is not recommended in the following populations: Individuals with unstable creatinine concentrations, including patients and those with serious co-morbid conditions. Patients with extremes in muscle mass or diet. The data above are obtained from the National Kidney Disease Education Program ( NKDEP) which additionally recommends that when the eGFR is used in patients with extremes of body mass index for purposesof drug dosing, the eGFR should be multiplied by the estimated BMI.2Result Comment: The eGFR is calculated using the CKD-EPI formula. In most young, healthy individualsthe eGFR will be >90 mL/ min/1.73m2. The eGFR declines with age. An eGFR of 60-89 may be normal in some populations, particularly the elderly, for whom the CKD-EPI formula has not been extensively validated. Use of the eGFR is not recommended in the following populations: Individuals with unstable creatinine concentrations, including patients and those with serious co-morbid conditions. Patients with extremes in muscle mass or diet. The data above are obtained from the National Kidney Disease Education Program ( NKDEP) which additionally recommends that when the eGFR is used in patients with extremes of body mass index for purposesof drug dosing, the eGFR should be multiplied by the estimated BMI.3Result Comment: The eGFR is calculated using the CKD-EPI formula. In most young, healthy individualsthe eGFR will be >90 mL/ min/1.73m2. The eGFR declines with age. An eGFR of 60-89 may be normal in some populations, particularly the elderly, for whom the CKD-EPI formula has not been extensively validated. Use of the eGFR is not recommended in the following populations: Individuals with unstable creatinine concentrations, including patients and those with serious co-morbid conditions. Patients with extremes in muscle mass or diet. The data above are obtained from the National Kidney Disease Education Program ( NKDEP) which additionally recommends that when the eGFR is used in patients with extremes of body mass index for purposesof drug dosing, the eGFR should be multiplied by the estimated BMI.CARDIAC ENZYMES Most recent to oldest 1 2 3 [Reference Range]: Total CK [12-191 unit/L] 89 unit/L 135 unit/L (10/31/16 6:07 AM) (10/30/16 6:05 PM) CK MB [0.5-3.6 ng/mL] 0.7 ng/mL 1.1 ng/mL (10/31/16 6:07 AM) (10/30/16 6:05 PM) CK MB Index [0.0-2.5] 0.8 0.8 (10/31/16 6:07 AM) (10/30/16 6:05 PM) Troponin-I [0.00-0.40 ng/mL] 0.03 ng/mL 0.06 ng/mL 0.02 ng/mL (10/31/16 6:07 AM) (10/31/16 12:30 AM) (10/30/16 6:05 PM) LIPIDS Most recent to oldest [Reference Range]: 1 2 3 CHD Risk [3.90-5.80] 3.53 *LOW* (10/31/16 6:07 AM) Chol [<=199 mg/dL] 173 mg/dL (10/31/16 6:07 AM) Trig [<=149 mg/dL] 207 mg/dL *HI* (10/31/16 6:07 AM) HDL [>=61 mg/dL] 49 mg/dL *LOW* (10/31/16 6:07 AM) LDL (Calculated) [<=99 mg/dL] 83 mg/dL (10/31/16 6:07 AM) VLDL 41 *NA* (10/31/16 6:07 AM) SPECIAL CHEMISTRY Most recent to oldest [Reference Range]: 1 2 3 Hgb A1C [<=5.6 %] 12.6 % *HI* (10/31/16 6:07 AM) HEMATOLOGY Most recent to oldest 1 2 3 [Reference Range]: WBC [3.7-10.4 K/CMM] 8.1 K/CMM 7.2 K/CMM 7.1 K/CMM (11/02/16 4:19 AM) (11/01/16 4:28 AM) (10/31/16 6:07 AM) RBC [4.20-5.40 M/CMM] 3.92 M/CMM 3.87 M/CMM 3.74 M/CMM *LOW* *LOW* *LOW* (11/02/16 4:19 AM) (11/01/16 4:28 AM) (10/31/16 6:07 AM) Hgb [12.0-16.0 g/dL] 12.0 g/dL 12.0 g/dL 11.4 g/dL (11/02/16 4:19 AM) (11/01/16 4:28 AM) *LOW* (10/31/16 6:07 AM) Hct [36.0-48.0 %] 35.9 % 35.6 % 34.3 % *LOW* *LOW* *LOW* (11/02/16 4:19 AM) (11/01/16 4:28 AM) (10/31/16 6:07 AM) MCV [80.0-98.0 fL] 91.7 fL 92.0 fL 91.5 fL (11/02/16 4:19 AM) (11/01/16 4:28 AM) (10/31/16 6:07 AM) MCH [27.0-31.0 pg] 30.7 pg 30.9 pg 30.5 pg (11/02/16 4:19 AM) (11/01/16 4:28 AM) (10/31/16 6:07 AM) MCHC [32.0-36.0 g/dL] 33.5 g/dL 33.6 g/dL 33.3 g/dL (11/02/16 4:19 AM) (11/01/16 4:28 AM) (10/31/16 6:07 AM) RDW [11.5-14.5 %] 13.1 % 13.3 % 12.7 % (11/02/16 4:19 AM) (11/01/16 4:28 AM) (10/31/16 6:07 AM) Platelet [133-450 K/CMM] 230 K/CMM 220 K/CMM 237 K/CMM (11/02/16 4:19 AM) (11/01/16 4:28 AM) (10/31/16 6:07 AM) MPV [7.4-10.4 fL] 10.4 fL 10.1 fL 9.9 fL (11/02/16 4:19 AM) (11/01/16 4:28 AM) (10/31/16 6:07 AM) Segs [45.0-75.0 %] 41.0 % 40.0 % 32.0 % *LOW* *LOW* *LOW* (11/02/16 4:19 AM) (11/01/16 4:28 AM) (10/31/16 6:07 AM) Bands [0.0-11.0 %] 3.0 % 0.0 % 1.0 % (11/02/16 4:19 AM) (11/01/16 4:28 AM) (10/31/16 6:07 AM) Lymphocytes [20.0-40.0 %] 42.0 % 40.0 % 60.0 % *HI* (11/01/16 4:28 AM) *HI* (11/02/16 4:19 AM) (10/31/16 6:07 AM) Atypical Lymphs [<=0.0 %] 0.0 % 8.0 % 0.0 % (11/02/16 4:19 AM) *HI* (10/31/16 6:07 AM) (11/01/16 4:28 AM) Monocytes [2.0-12.0 %] 9.0 % 7.0 % 6.0 % (11/02/16 4:19 AM) (11/01/16 4:28 AM) (10/31/16 6:07 AM) Eosinophils [0.0-4.0 %] 4.0 % 5.0 % 1.0 % (11/02/16 4:19 AM) *HI* (10/31/16 6:07 AM) (11/01/16 4:28 AM) Basophils [0.0-1.0 %] 1.0 % 0.8 % 1.0 % (11/02/16 4:19 AM) (10/31/16 6:07 AM) (10/30/16 10:49 PM) Segs-Bands # [1.5-8.1 3.6 K/CMM 2.9 K/CMM 2.3 K/CMM K/CMM] (11/02/16 4:19 AM) (11/01/16 4:28 AM) (10/31/16 6:07 AM) Lymphocytes # [1.0-5.5 3.4 K/CMM 3.5 K/CMM 4.3 K/CMM K/CMM] (11/02/16 4:19 AM) (11/01/16 4:28 AM) (10/31/16 6:07 AM) Monocytes # [0.0-0.8 K/CMM] 0.7 K/CMM 0.5 K/CMM 0.4 K/CMM (11/02/16 4:19 AM) (11/01/16 4:28 AM) (10/31/16 6:07 AM) Eosinophils # [0.0-0.5 0.3 K/CMM 0.4 K/CMM 0.1 K/CMM K/CMM] (11/02/16 4:19 AM) (11/01/16 4:28 AM) (10/31/16 6:07 AM) Basophils # [0.0-0.2 K/CMM] 0.1 K/CMM 0.1 K/CMM 0.1 K/CMM (11/02/16 4:19 AM) (10/31/16 6:07 AM) (10/30/16 10:49 PM) RBC Morph Normal Normal Normal (11/02/16 4:19 AM) (11/01/16 4:28 AM) (10/31/16 6:07 AM) Plt Morph Normal Normal Normal (11/02/16 4:19 AM) (11/01/16 4:28 AM) (10/31/16 6:07 AM) Immunizations Given and Recorded Vaccine Date Status Refusal Reason pneumococcal 23-valent vaccine 10/31/16 Given Procedures No data available for this section Social History Social History Type Response Substance Abuse Use: None. Sexual Sexually active: Yes. Exercise Exercise type: Walking. Employment/School Status: Unemployed. Alcohol Never Smoking Status Never smoker; Type: Cigarettes; Previous treatment: None; Concerns about tobacco use in household: No; Exposure to Tobacco Smoke None; Cigarette Smoking Last 365 Days No; Reg Smoking Cessation Counseling No Assessment and Plan Extracted from: Title: Progress Note Complex * Author: Solitario Rodrigues MD Date: Impression and Plan 1. uncontrolled diabetes 2. abdnomal stress test 3. vt 4 hyperlipidemia c/w lantus 15 units qam with sliding scale will follow sugars and adjust accordingly plan for cardiac cath in am on lovenox 70 mg [id number] Extracted from: Title: General Admission H&P * Author: Solitario Rodrigues MD Date: Impression and Plan 1. uncontrolled diabetes 2. abdnomal stress test 3. vt 4 hyperlipidemia will start her on weight based lantus at 15 units now with sliding scale and adjust accordingly on metoprolol, lisinopril, aspirin, statin full dose lovenox pending cardiac cath for wednesday follow closely while in the hospital Extracted from: Title: Clinical Document Author: Bereket Lemon MD Date: 10/30/16 Reason for Appointment 1. TMT History of Present Illness CV evaluation: Since her last visit her echo showed normal EF and diastology. Today she came to the office for Jordan treadmill stress test and had sustained VT with chest pain at 3 min. ECG normalized in the first minute of recovery and she had resolution of chest pain. Current Medications Taking Pravastatin Sodium 40 MG Tablet 1 tablet Orally Once a day Lisinopril 20 MG Tablet 1 tablet Orally Once a day Metformin HCl 850 MG Tablet 1 tablet with a meal Orally three times a day Past Medical History Hypertension Diabetes, type II Hyperlipidemia Normal EF and diastology in October 2016 Ventricular tachycardia on 3min Jordan protocol Surgical History C section Family History Mother: 62 yrs, diagnosed with Diabetes mellitus without mention of complication, type II or unspecified type, not stated as uncontrolled Father: alive 79 yrs, diagnosed with Diabetes mellitus without mention of complication, type II or unspecified type, not stated as uncontrolled 2 brother(s) , 3 sister(s) . 4 son(s) , 3 daughter(s) . Social History Smoking. Are you a: never smoker. no Alcohol. Hospitalization/Major Diagnostic Procedure C section Review of Systems General/Constitutional: Fatigue no, no. Weakness no, no. Weight gain no, no. Headaches no, no. Allergy/Immunology: Colds no, no. Cough no, no. HEENT/Neck: Dizziness no, no. Change in vision no, no. Respiratory: Chest congestion no, no. Cough no, no. Pain with breathing no, no. Shortness of breath yes, . Swelling of the legs no, no. Wheezing no, no. Cardiovascular: Chest pain yes, . Claudication no, no. Dyspnea on exertion no, no. Palpitations no, no. Gastrointestinal: Abdominal pain no, no. Change in bowel habits no, no. Constipation no, no. Diarrhea no, no. Nausea no, no. Hematology: Easy bleeding no, no. Easy bruising no, no. Musculoskeletal: Back pain no, no. Myalgias no, no. Physical Examination GENERAL: General Appearance: alert and oriented, appears stated age. Speech: fluent. HEENT: EOM: intact. Head: normocephalic, atraumatic. NECK: Carotid bruit: none. Jugular venous distension: none. HEART: Rate: regular. Rhythm: regular. Murmurs: none. Gallop: no . Heart sounds: normal S1S2. CHEST: Breath sounds: clear bilaterally. Expansion: normal . Rales: none. Wheezes: none. ABDOMEN: Bowel sounds: normal. General: normal. Tenderness: absent . EXTREMITIES: Edema: none. MENTAL STATUS EXAM: Alert and Oriented: To person, place and time. BACK: General: non-tender. Assessments 1. Precordial pain - R07.2 2. Ventricular tachycardia - I47.2 3. Abnormal result of cardiovascular function study, unspecified - R94.30 Treatment 1. Others Notes: Chest pain with abnormal stress test High risk features with sustained VT and chest pain at low stage (3 min Jordan) She lives far from medical facilities Will admit to hospital High dose statin, betablocker and Lovenox Serial enzymes Cath possible PCI.
[2018-01-16 22:49] LABS: Absolute Monocytes 1.6 K/uL (0.1-1.3); Absolute Neutrophil 17.6 K/uL (1.8-8.0); Basophils % 0.3 % (0-1.3); Eosinophils % 0.7 % (0-4.4); Hematocrit 40.4 % (36.0-45.0); Lymphocytes % 13.5 % (15.3-44.8); MCH 29.4 pg (27.0-35.0); MCV 92.1 fL (80-100); MPV 9.9 fL (7.6-11.3); Monocytes % 6.9 % (3.3-12.3); RBC Red Blood Cell Count 4.38 M/uL (3.86-4.86)
[2018-01-16] MEDS ORDERED: PROMETHAZINE 25 MG/ML VIAL ONE (23:03)
[2018-01-16] MEDS ORDERED: MEPERIDINE HCL 25 MG/0.5 ML ONE (23:03)
[2018-01-16 23:11] LABS: Albumin 4.1 g/dL (3.4-5.0); Bilirubin Direct 0.1 mg/dL (0-0.2); Bilirubin Total 0.5 mg/dL (0.2-1.0); Potassium 4.2 mmol/L (3.5-5.1); Protein, Total 8.4 g/dL (6.4-8.2)
[2018-01-16 23:13] LABS: Blood Morphology Comment NOT SEEN (NOT SEEN); Platelet Estimate ADEQ
[2018-01-16] MEDS ORDERED: NA CHLORIDE 0.9% 1,000 ML ONE (23:24)
[2018-01-17] MEDS ORDERED: PROMETHAZINE 25 MG/ML VIAL ONE (01:50)
--- NOTE | 2018-01-17 02:14 | ER ---
Nurse's Notes [facility] Name: Marva Jimenes Age: 57 yrs Sex: Female : 1960 Arrival Date: 01/16/2018 Time: 21:52 Bed 16 Private MD: Diagnosis: Abdominal and pelvic pain Presentation: 01/16 22:06 Presenting complaint: Patient states: "I have pain here" Patient points at the ao epigastric area. Patient describes pain as burning sensation that is 10/10 pain scale. Patient reports vomiting, nausea and no diarrhea. Transition of care: patient was not received from another setting of care. Onset of symptoms was January 16, 2018 at 06:00. Risk Assessment: Do you want to hurt yourself or someone else? Patient reports no desire to harm self or others. Initial Sepsis Screen: Does the patient meet any 2 criteria? No. Patient's initial sepsis screen is negative. Does the patient have a suspected source of infection? No. Patient's initial sepsis screen is negative. Care prior to arrival: None. 22:06 Method Of Arrival: Ambulatory ao 22:06 Acuity: NELLA 3 ao Historical: - Allergies: 22:13 No Known Allergies; ao - Home Meds: 22:12 metformin 850 mg Oral tab 1 tab 3 times per day [Active]; lisinopril 20 mg Oral tab 1 ao tab once daily [Active]; pravastatin 40 mg oral tab 1 tab once daily [Active]; - PMHx: 22:12 Hypertension; Hyperlipidemia; Diabetes - NIDDM; ao - PSHx: 22:12 None; ao - Immunization history:: Adult Immunizations up to date. - Social history:: Smoking status: Patient/guardian denies using tobacco, Patient/guardian denies using alcohol, street drugs. - Ebola Screening: : Patient negative for fever greater than or equal to 101.5 degrees Fahrenheit, and additional compatible Ebola Virus Disease symptoms Patient denies exposure to infectious person Patient denies travel to an Ebola-affected area in the 21 days before illness onset. Screenin:18 Abuse screen: Denies threats or abuse. Denies injuries from another. Nutritional ao screening: No deficits noted. Tuberculosis screening: No symptoms or risk factors identified. Fall Risk None identified. Assessment: 22:15 General: Appears in no apparent distress. uncomfortable, Behavior is calm, cooperative, ao appropriate for age. Pain: Complains of pain in Epigastric pain Pain does not radiate. Pain currently is 10 out of 10 on a pain scale. Quality of pain is described as burning, pressure. Neuro: Level of Consciousness is awake, alert, obeys commands, Oriented to person, place, time, situation, Appropriate for age Moves all extremities. Full function Speech is normal, Facial symmetry appears normal, Pupils are PERRLA. Cardiovascular: Capillary refill < 3 seconds Patient's skin is warm and dry. Respiratory: Airway is patent Respiratory effort is even, unlabored, Respiratory pattern is regular, symmetrical. GI: Abdomen is non-distended, Bowel sounds present X 4 quads. Abd is soft and non tender X 4 quads. : No signs and/or symptoms were reported regarding the genitourinary system. EENT: No signs and/or symptoms were reported regarding the EENT system. Derm: Skin is intact, Skin is pink, warm \\T\\ dry. normal, Skin temperature is warm. Musculoskeletal: Circulation, motion, and sensation intact. Range of motion:. 23:30 Reassessment: Patient appears in no apparent distress at this time. Patient and/or ao family updated on plan of care and expected duration. Pain level reassessed. Patient is alert, oriented x 3, equal unlabored respirations, skin warm/dry/pink. Patient to be taken to CT. 01/17 00:32 Reassessment: Patient appears in no apparent distress at this time. Patient and/or ao family updated on plan of care and expected duration. Pain level reassessed. Patient is alert, oriented x 3, equal unlabored respirations, skin warm/dry/pink. Waiting on Ct report. 01:30 Reassessment: Patient appears in no apparent distress at this time. Patient and/or ao family updated on plan of care and expected duration. Pain level reassessed. Patient is alert, oriented x 3, equal unlabored respirations, skin warm/dry/pink. Waiting on CT report. 02:00 Reassessment: Received a verbal order from Hugh BAIG to medicate patient with ao Phenergan 12.5. 02:24 Reassessment: DC Instructions given to patient and family. Patient agree with the POC ao and to follow up with PCP. Patient has no questions at this time. Vital Signs: 01/16 22:00 BP 191 / 103 RA Sitting (auto/reg); Pulse 102 MON; Resp 24 S; Temp 99(O); Pulse Ox 99% ;jp3 22:09 Weight 71.67 kg (R); Height 5 ft. 2 in. (157.48 cm); Pain 10/10; ao 22:30 BP 170 / 89 RA Sitting (auto/reg); Pulse 92 MON; Resp 18 S; Pulse Ox 98% ; jp3 23:11 BP 172 / 91; Pulse 106; Resp 22; Pulse Ox 96% on R/A; ao 0702 00:32 BP 148 / 79; Pulse 85; Resp 17; Pulse Ox 98% on R/A; ao 01:30 BP 139 / 79; Pulse 96; Resp 16; Pulse Ox 99% on R/A; ao 02:24 BP 138 / 85; Pulse 89; Resp 16; Pulse Ox 99% on R/A; Pain 0/10; ao 07 22:09 Body Mass Index 28.90 (71.67 kg, 157.48 cm) ao ED Course: 01/16 21:52 Patient arrived in ED. es 22:06 Paras Gonsales, RN is Primary Nurse. ao 22:09 Triage completed. ao 22:09 Arm band placed on right wrist. Patient placed in an exam room, on a stretcher, on ao pulse oximetry, Patient notified of wait time. 22:10 Hugh Key PA is PHCP. jr8 22:10 Zane Olivas MD is Attending Physician. jr8 22:17 Patient has correct armband on for positive identification. Pulse ox on. NIBP on. ao 22:30 Inserted saline lock: 20 gauge in right antecubital area, using aseptic technique. ao Blood collected. 22:43 EKG done, by ED staff, reviewed by Hugh BAIG. jp3 22:50 Ultrasound completed. Patient tolerated well. sg3 22:50 US Abdomen Limited In Process Unspecified. EDMS 23:16 Notified Nurse Practitioner and/or Physician Furniture Salesperson of a critical lab result(s), ak1 22.4 WBC. 23:[address] via wheelchair. kw1 23:50 CT Abd/Pelvis - W/Contrast In Process Unspecified. EDMS 23:50 CT completed. Patient tolerated procedure well. Patient moved back from CT. kw1 01/17 02:23 No provider procedures requiring assistance completed. Patient did not have IV access ao during this emergency room visit. IV discontinued, intact, bleeding controlled, No redness/swelling at site. Pressure dressing applied. 02:36 Primary Nurse role handed off by Paras Gonsales RN ao 02:36 Paras Gonsales RN is Primary Nurse. ao Administered Medications: 01/16 23:08 Drug: Phenergan 12.5 mg Route: IVP; Site: left antecubital; ao 01/17 02:27 Follow up: Response: No adverse reaction ao 01/16 23:09 Drug: Demerol 25 mg Route: IVP; Site: left antecubital; ao 01/17 02:27 Follow up: Response: No adverse reaction ao 01/16 23:25 Drug: NS 0.9% 1000 ml Route: IV; Rate: 1000 ml; Site: right antecubital; ao 01/17 02:26 Follow up: IV Status: Completed infusion; IV Intake: 1000ml ao 02:00 Drug: Phenergan 12.5 mg Route: IVP; Site: left antecubital; ao 02:39 Follow up: Response: No adverse reaction ao Intake: 02:26 IV: 1000ml; Total: 1000ml. ao Outcome: 02:13 Discharge ordered by MD. kyle 02:24 Discharged to home ambulatory. ao 02:24 Condition: stable 02:24 Discharge instructions given to patient, Instructed on discharge instructions, follow up and referral plans. Demonstrated understanding of instructions, follow-up care, medications, Prescriptions given X 2. 02:32 Patient left the ED. ao 02:39 Patient left the ED. ao Signatures: Dispatcher [employer] EDFanny Gregory Josh, PA PA jrBeatrice Pearce RN RN ak1 Paras Gonsales RN RN ao Kathryn Jerez1 Destiney Urban3 Kevin Martinez jp3 Corrections: (The following items were deleted from the chart) 01/16 22:13 22:12 Allergies: Aspirin; ao ao
--- NOTE | 2018-01-17 02:14 | EDPHYS ---
Physician Documentation [facility] Name: Marva Jimenes Age: 57 yrs Sex: Female : 1960 Arrival Date: 01/16/2018 Time: 21:52 Bed 16 Private MD: ED Physician Zane Olivas HPI: 01/16 22:45 This 57 yrs old Female presents to ER via Ambulatory with complaints of jr8 Abdominal Pain, Vomiting. 22:45 The patient presents with abdominal pain in the epigastric area. Onset: The jr8 symptoms/episode began/occurred acutely, today. The symptoms radiate to back. Associated signs and symptoms: Pertinent positives: nausea. The symptoms are described as shooting. Modifying factors: The symptoms are alleviated by nothing, the symptoms are aggravated by nothing. Severity of pain: At its worst the pain was moderate in the emergency department the pain is unchanged. The patient has not experienced similar symptoms in the past. The patient has not recently seen a physician. Historical: - Allergies: 22:13 No Known Allergies; ao - Home Meds: 22:12 metformin 850 mg Oral tab 1 tab 3 times per day [Active]; lisinopril 20 mg Oral tab 1 ao tab once daily [Active]; pravastatin 40 mg oral tab 1 tab once daily [Active]; - PMHx: 22:12 Hypertension; Hyperlipidemia; Diabetes - NIDDM; ao - PSHx: 22:12 None; ao - Immunization history:: Adult Immunizations up to date. - Social history:: Smoking status: Patient/guardian denies using tobacco, Patient/guardian denies using alcohol, street drugs. - Ebola Screening: : Patient negative for fever greater than or equal to 101.5 degrees Fahrenheit, and additional compatible Ebola Virus Disease symptoms Patient denies exposure to infectious person Patient denies travel to an Ebola-affected area in the 21 days before illness onset. ROS: 22:45 Eyes: Negative for injury, pain, redness, and discharge, ENT: Negative for injury, jr8 pain, and discharge, Neck: Negative for injury, pain, and swelling, Cardiovascular: Negative for chest pain, palpitations, and edema, Respiratory: Negative for shortness of breath, cough, wheezing, and pleuritic chest pain, Back: Negative for injury and pain, MS/Extremity: Negative for injury and deformity, Skin: Negative for injury, rash, and discoloration, Neuro: Negative for headache, weakness, numbness, tingling, and seizure. 22:45 Abdomen/GI: Positive for abdominal pain, nausea, Negative for vomiting, diarrhea, abdominal cramps, abdominal distension, anorexia, dysphagia, hematemesis, black/tarry stool, rectal pain, rectal bleeding, bowel incontinence, flatulence. Exam: 22:45 Eyes: Pupils equal round and reactive to light, extra-ocular motions intact. Lids and jr8 lashes normal. Conjunctiva and sclera are non-icteric and not injected. Cornea within normal limits. Periorbital areas with no swelling, redness, or edema. ENT: Nares patent. No nasal discharge, no septal abnormalities noted. Tympanic membranes are normal and external auditory canals are clear. Oropharynx with no redness, swelling, or masses, exudates, or evidence of obstruction, uvula midline. Mucous membranes moist. Neck: Trachea midline, no thyromegaly or masses palpated, and no cervical lymphadenopathy. Supple, full range of motion without nuchal rigidity, or vertebral point tenderness. No Meningismus. Cardiovascular: Regular rate and rhythm with a normal S1 and S2. No gallops, murmurs, or rubs. Normal PMI, no JVD. No pulse deficits. Respiratory: Lungs have equal breath sounds bilaterally, clear to auscultation and percussion. No rales, rhonchi or wheezes noted. No increased work of breathing, no retractions or nasal flaring. Back: No spinal tenderness. No costovertebral tenderness. Full range of motion. Skin: Warm, dry with normal turgor. Normal color with no rashes, no lesions, and no evidence of cellulitis. MS/ Extremity: Pulses equal, no cyanosis. Neurovascular intact. Full, normal range of motion. Neuro: Awake and alert, GCS 15, oriented to person, place, time, and situation. Cranial nerves II-XII grossly intact. Motor strength 5/5 in all extremities. Sensory grossly intact. Cerebellar exam normal. Normal gait. 22:45 Abdomen/GI: Inspection: abdomen appears normal, Bowel sounds: active, all quadrants, Palpation: soft, in all quadrants, moderate abdominal tenderness, in the epigastric area and right upper quadrant, mass, is not appreciated, rebound tenderness, is not appreciated, voluntary guarding, is not appreciated, involuntary guarding, is not appreciated, no appreciated organomegaly, Indicators: McBurney's point is not tender, Pace's sign is negative, Rovsing's sign is negative. Vital Signs: 22:00 BP 191 / 103 RA Sitting (auto/reg); Pulse 102 MON; Resp 24 S; Temp 99(O); Pulse Ox 99% ;jp3 22:09 Weight 71.67 kg (R); Height 5 ft. 2 in. (157.48 cm); Pain 10/10; ao 22:30 BP 170 / 89 RA Sitting (auto/reg); Pulse 92 MON; Resp 18 S; Pulse Ox 98% ; jp3 23:11 BP 172 / 91; Pulse 106; Resp 22; Pulse Ox 96% on R/A; ao 01/17 00:32 BP 148 / 79; Pulse 85; Resp 17; Pulse Ox 98% on R/A; ao 01:30 BP 139 / 79; Pulse 96; Resp 16; Pulse Ox 99% on R/A; ao 02:24 BP 138 / 85; Pulse 89; Resp 16; Pulse Ox 99% on R/A; Pain 0/10; ao 01/16 22:09 Body Mass Index 28.90 (71.67 kg, 157.48 cm) ao MDM: 01/16 22:10 Patient medically screened. jr8 01/17 02:10 Differential diagnosis: cholecystitis, Cholelithiasis, diverticulitis, gastritis, jr8 Hepatitis, myocardia ischemia or infarction, non-specific abd pain, pancreatitis, Peptic Ulcer Disease. Data reviewed: vital signs, nurses notes, lab test result(s), radiologic studies, CT scan, ultrasound, and as a result, I will discharge patient. Data interpreted: Pulse oximetry: on room air is 98 %. Interpretation: normal. Counseling: I had a detailed discussion with the patient and/or guardian regarding: the historical points, exam findings, and any diagnostic results supporting the discharge/admit diagnosis, lab results, radiology results, the need for outpatient follow up, a family practitioner, a edge grinder machine, to return to the emergency department if symptoms worsen or persist or if there are any questions or concerns that arise at home. Response to treatment: the patient's symptoms have markedly improved after treatment, patient is well hydrated. ED course: Reexamined patient. Patient feels much better. No pain at this time. Abdomen soft and non tender. Negative US and CT with IV contrast. Will have patient f/u with GI and PCP tomorrow. If she were to worsen to immediately come back for reevaluation. Patient and family good with this . 01/16 22:32 Order name: Basic Metabolic Panel; Complete Time: 23:[address] [facility] 01/16 22:32 Order name: CBC with Diff; Complete Time: 23:[address] [facility] 01/16 22:32 Order name: Hepatic Function; Complete Time: 23:15 01/16 22:32 Order name: Lipase; Complete Time: 23:15 01/16 22:32 Order name: Troponin (emerg Dept Use Only); Complete Time: 23:[address] [facility] 01/16 22:32 Order name: EKG; Complete Time: 22:[address] [facility] 01/16 22:35 Order name: US Abdomen Limited [facility] 01/16 23:13 Order name: Manual Differential; Complete Time: 23:15 EDMS 01/16 23:17 Order name: CT Abd/Pelvis - W/Contrast [facility] 01/16 22:32 Order name: IV Saline Lock; Complete Time: 22:[address] [facility] 01/16 22:32 Order name: Labs collected and sent; Complete Time: 22:[address] [facility] 01/16 22:32 Order name: Urine Dipstick-Ancillary (obtain specimen); Complete Time: 22:[address] [facility] 01/16 22:32 Order name: EKG - Nurse/Tech; Complete Time: 22:37 Administered Medications: 01/16 23:08 Drug: Phenergan 12.5 mg Route: IVP; Site: left antecubital; ao 01/17 02:27 Follow up: Response: No adverse reaction ao 01/16 23:09 Drug: Demerol 25 mg Route: IVP; Site: left antecubital; ao 01/17 02:27 Follow up: Response: No adverse reaction ao 01/16 23:25 Drug: NS 0.9% 1000 ml Route: IV; Rate: 1000 ml; Site: right antecubital; ao 01/17 02:26 Follow up: IV Status: Completed infusion; IV Intake: 1000ml ao 02:00 Drug: Phenergan 12.5 mg Route: IVP; Site: left antecubital; ao 02:39 Follow up: Response: No adverse reaction ao Disposition: 08:54 Co-signature as Attending Physician, Zane Olivas MD I agree with the assessment and trupti plan of care. Disposition: 01/17/18 02:13 Discharged to Home. Impression: Abdominal and pelvic pain. - Condition is Stable. - Discharge Instructions: Abdominal Pain, Adult. - Prescriptions for Tylenol- Codeine #3 300-30 mg Oral Tablet - take 2 tablets by ORAL route every 6 hours As needed; 20 tablet. Zofran 4 mg Oral Tablet - take 1 tablet by ORAL route every 12 hours As needed; 20 tablet. - Medication Reconciliation Form, Thank You Letter, Antibiotic Education, Prescription Opioid Use form. - Follow up: Private Physician; When: Tomorrow; Reason: Recheck today's complaints, Continuance of care, Re-evaluation by your physician. - Problem is new. - Symptoms have improved. Signatures: Dispatcher [employer] [facility] Zane Olivas MD MD cha Roszak, Josh, PA PA jr8 Paras Gonsales, RN RN ao Corrections: (The following items were deleted from the chart) 01/16 22:13 22:12 Allergies: Aspirin; ao ao 22:45 22:32 Creatinine for Radiology+C.LAB.BRZ ordered. [facility] 01/17 02:32 02:13 01/17/2018 02:13 Discharged to Home. Impression: Abdominal and pelvic pain. ao Condition is Stable. Forms are Medication Reconciliation Form, Thank You Letter, Antibiotic Education, Prescription Opioid Use. Follow up: Private Physician; When: Tomorrow; Reason: Recheck today's complaints, Continuance of care, Re-evaluation by your physician. Problem is new. Symptoms have improved. jr8 02:39 02:32 01/17/2018 02:13 Discharged to Home. Impression: Abdominal and pelvic pain. ao Condition is Stable. Discharge Instructions: Abdominal Pain, Adult. Prescriptions for Tylenol-Codeine #3 300-30 mg Oral Tablet - take 2 tablets by ORAL route every 6 hours As needed; 20 tablet, Zofran 4 mg Oral Tablet - take 1 tablet by ORAL route every 12 hours As needed; 20 tablet. and Forms are Medication Reconciliation Form, Thank You Letter, Antibiotic Education, Prescription Opioid Use. Follow up: Private Physician; When: Tomorrow; Reason: Recheck today's complaints, Continuance of care, Re-evaluation by your physician. Problem is new. Symptoms have improved. ao
--- NOTE | 2018-01-17 06:32 | EKG ---
Test Date: 2018-01-16 Test Time: 22:35:48 Business Info Consultant: CYNDEE MEASUREMENT RESULTS: Intervals: Rate: 93 TX: 148 QRSD: 72 QT: 350 QTc: 435 [place]: P: 40 TX: 148 QRS: 10 T: 127 INTERPRETIVE STATEMENTS: Normal sinus rhythm Possible Left atrial enlargement ST & T wave abnormality, non specific Abnormal ECG Compared to ECG 01/09/2003 14:26:00 Sinus bradycardia no longer present Electronically Signed On 01-17-18 06:32:35 CDT by Juan Membreno
--- NOTE | 2018-01-17 06:46 | RAD REPORT ---
EXAM DESCRIPTION: US - Abdomen Exam Limited - 01/16/2018 10:52 pm CLINICAL HISTORY: Abdominal pain COMPARISON: None. FINDINGS: No gallstones, sludge or other abnormalities within the gallbladder lumen. There is no wal l thickening or pericholecystic fluid. No common duct stone or biliary tree dilatation identified. Partially imaged liver shows increased parenchymal echogenicity typical for fatty infiltration. IMPRESSION: Normal gallbladder and biliary tree ultrasound. Fatty infiltration of a partially imaged liver.
--- NOTE | 2018-01-17 06:54 | RAD REPORT ---
EXAM DESCRIPTION: CT - Abdomen Pelvis W Contrast - 01/17/2018 1:53 am CLINICAL HISTORY: Abdominal pain, epigastric pain. A preliminary written report was provided at the time of the study, and the report was reviewed prio r to final dictation. COMPARISON: Abdomen ultrasound same date TECHNIQUE: Biphasic, helical CT imaging of the abdomen and pelvis was performed following 100 ml non -ionic IV contrast. No oral contrast administered. All CT scans are performed using dose optimization technique as appropriate and may include automated exposure control or mA/KV adjustment according to patient size. FINDINGS: No suspicious findings in the lung bases. Liver shows diffuse fatty infiltration. No hepatomegaly or focal liver lesion identifiable. Small acc essory splenic nodule is present. No focal splenic abnormality. Pancreas and peripancreatic tissues a re unremarkable. Gallbladder and biliary tree are also without suspicious finding. Symmetric renal function is seen with no hydronephrosis or suspicious renal mass. No pyelonephritis o r acute renal parenchymal process. No adrenal abnormality. Urinary bladder is only partially filled. No abnormality suspected. Uterus and ovaries within normal limits. Multiple phleboliths seen along th e pelvic floor. No dilated bowel loops or bowel wall thickening. No appendicitis findings. No free air, free fluid or inflammatory stranding. No mass or bulky lymphadenopathy. Fat extends into the origin of the left i nguinal canal. No suspicious bony findings. IMPRESSION: Contrast enhanced CT abdomen and pelvis showing no acute finding. Nonacute findings det jeanette in the body of the report.
== END 2018-01-17 02:39 | disposition home or self-care (01) ==
LOC: ER 21:52
DX: R10.2 Pelvic and perineal pain (principal); I10 Essential (primary) hypertension; E78.5 Hyperlipidemia, unspecified; E11.9 Type 2 diabetes mellitus without complications
CPT/HCPCS: 36415; 74177; 76705; 80048; 80076; 83690; 84484; 85025; 93005; 96361; 96374; 96375; 99285; J2175; J2550; J7030; Q9967